=== PATIENT | male | born 1960 | race Two or more races ===

== ENCOUNTER 2023-05-27 13:33 | Emergency (ER) | payer OTHER ==
[~2023-05-27] VITALS: Ht 165.1 cm; Wt 64.9 kg
[~2023-05-27 13:33] MED LIST: DULCOLAX5 MG PO; ORPH100T PO
[2023-05-27] MEDS ORDERED: CHILDREN'S ASPI81 MG PO (14:18)
[2023-05-27] MEDS ORDERED: ZESTRIL40 M1 PO (14:18)
[2023-05-27] MEDS ORDERED: KAPSPARGO SPRIN25 MG PO (14:19)
[2023-05-27] MEDS ORDERED: NORVASC5 MG PO (14:20)
[2023-05-27] MEDS ORDERED: MELATONIN5 M2 PO (18:21)
[2023-05-27] MEDS ORDERED: RELAGESIC 5001 EACH PO (18:21)
== END 2023-05-27 18:31 | disposition home or self-care (01) ==
LOC: ER 13:33
PROVIDERS: General Practice
DX: R07.89 Other chest pain (principal); M62.838 Other muscle spasm; M54.89 Other dorsalgia; I10 Essential (primary) hypertension